=== PATIENT | male | born 2005 | race Caucasian/White ===

== ENCOUNTER 2024-03-14 04:22 | Emergency (ER) | payer SELFPAY ==
[~2024-03-14] VITALS: Ht 180.3 cm; Wt 90.7 kg
[2024-03-14 04:36] VITALS: BP 127/67; PULSE 96; RESP 14; TEMP 97.3; O2SAT 99
[2024-03-14 04:59] VITALS: BP 127/67; PULSE 96; RESP 14; TEMP 97.3; O2SAT 99
== END 2024-03-14 04:50 | disposition home or self-care (01) ==
LOC: MED 04:22
DX: Z02.89 Encounter for other administrative examinations (principal); Z88.0 Allergy status to penicillin; V49.88XA Car occupant (driver) (passenger) injured in other specified transport accidents, initial encounter; Y93.89 Activity, other specified; Y92.89 Other specified places as the place of occurrence of the external cause; Y99.8 Other external cause status
CPT/HCPCS: 99283